=== PATIENT | male | born 1950 | race Caucasian/White ===

== ENCOUNTER 2017-02-27 02:38 | Inpatient (IN) ==
--- NOTE | 2017-02-24 11:45 | EKG Report ---
Test Performed on : 02/24/2017 11:36:39 AM Test Reason : PAT Blood Pressure : / mmHG Vent. Rate : 081 BPM Atrial Rate : 081 BPM P-R Int : 148 ms QRS Dur : 092 ms QT Int : 404 ms P-R-T Axes : 050 023 033 degrees QTc Int : 469 ms Normal sinus rhythm. Nonspecific ST and T wave abnormality Prolonged QT Abnormal ECG When compared with ECG of 07-MAY-2015 05:14, T wave inversion no longer evident in Anterior leads Confirmed by Henrik CORCORAN, Christiano Fishman ([id number]) on 02/24/2017 4:36:04 PM
[2017-02-24 11:52] LABS: HEMATOCRIT 46.2 % (42.0-52.0); HEMOGLOBIN 15.5 g/dL (14.0-18.0); MCH 29.6 PG (27-31); MCHC 33.5 g/dL (33-37); MCV 88.3 FL (81-99); MPV 10.5 FL (7.4-10.4); RBC 5.23 XMIL (4.7-6.1)
[2017-02-24 12:25] LABS: CALCIUM 9.2 mg/dL (8.8-10.2)
[2017-02-27] MEDS ORDERED: NITROGLYCERIN 50 MG/D5W 250 ML ONE (06:38)
[2017-02-27] MEDS ORDERED: LR 1,000 ML ONE ×2 (06:49→13:46)
[2017-02-27] MEDS ORDERED: KEFZOL 1 GM/D5W 50 ML ONE (06:50)
[2017-02-27] MEDS ORDERED: LOPRESSOR ONE (08:08)
[2017-02-27] MEDS ORDERED: VERSED ONE (10:17)
[2017-02-27] MEDS ORDERED: HEPARIN ONE ×2 (10:36→13:42)
[2017-02-27] MEDS ORDERED: KEFZOL ONE (10:36)
[2017-02-27] MEDS ORDERED: MARCAINE 0.25% PF/EPI 1:200,000 ONE (10:37)
[2017-02-27] MEDS ORDERED: NS 1,000 ML ONE ×2 (10:37→13:38)
[2017-02-27] MEDS ORDERED: NS 500 ML ONE (10:51)
[2017-02-27] MEDS ORDERED: PROTAMINE SULFATE ONE (12:26)
[2017-02-27] MEDS ORDERED: DIPRIVAN 1% ONE (13:07)
[2017-02-27] MEDS ORDERED: FENTANYL ONE (13:07)
[2017-02-27] MEDS ORDERED: PIGGYBACK SET 7393 ONE (13:40)
[2017-02-27] MEDS ORDERED: NORCURON ONE (13:40)
[2017-02-27] MEDS ORDERED: ATROPINE ONE (13:40)
[2017-02-27] MEDS ORDERED: QUELICIN (DOSE) ONE (13:40)
[2017-02-27] MEDS ORDERED: NEO-SYNEPHRINE ONE (13:42)
[2017-02-27] MEDS ORDERED: NEOSTIGMINE ONE (13:42)
[2017-02-27] MEDS ORDERED: STERILE WATER INJ. ONE (13:42)
[2017-02-27] MEDS ORDERED: ZOFRAN ONE (13:42)
[2017-02-27] MEDS ORDERED: XYLOCAINE-MPF 2% ONE (13:43)
[2017-02-27] MEDS ORDERED: ROBINUL ONE (13:43)
[2017-02-27] MEDS ORDERED: EPHEDRINE ONE (13:43)
[2017-02-27] MEDS: NS 1,000 ML IV SCH (14:18)
[2017-02-27] MEDS: ZOFRAN IV PRN (14:18)
[2017-02-27] MEDS: XYLOCAINE 1% ONE ×2 (14:20)
[2017-02-27] MEDS: OFIRMEV 1000 MG/ISOTONIC SOLN 100 ML IV SCH ×2 (14:21→19:54)
--- NOTE | 2017-02-27 14:33 | OPERATIVE NOTE ---
PROCEDURE DATE: 02/27/2017 PROCEDURE: Right carotid endarterectomy with patch angioplasty. SURGEON: Ronnell Galeano MD. CASE MONITOR: Puneet Verdin MD. PREOPERATIVE DIAGNOSIS: High-grade bilateral carotid stenosis. POSTOPERATIVE DIAGNOSIS: High-grade bilateral carotid stenosis. DESCRIPTION OF PROCEDURE: Satisfactory general endotracheal anesthesia achieved , the right side of the neck was prepped and draped in a sterile fashion. We marked the skin obliquely and anesthetized the skin with 0.25 Marcaine with epinephrine. We incised the skin , and carried our incision through the platysma. We then dissected along the anterior border of the sternocleidomastoid muscle. Small crossing veins were divided after clamping them with hemostats. We then ligated with 3-0 silks. We exposed the common carotid, surrounded with an umbilical tape. We dissected out the external carotid and surrounded it with a large vessel loop. We identified the hypoglossal nerve. We followed the ansa up to it and we kept it out of harm's way. The plaque seemed to go rather high. We surrounded the internal with a small vessel loop. 7000 units of heparin were given systemically. Then after it had circulated for 5 minutes , we clamped and occluded flow in the branch vessels with the vessel loops and then clamped off the common with a DeBakey clamp. Under 2.5 loupe magnification, we then incised the common, extended the incision through the plaque which was extreme at the takeoff of the internal into the internal. We then placed a 4-3 mm Sundt shunt. Held the distal limb of the small ring clamp. The proximal end was held with the umbilical tape. Clamp time was approximately 2 minutes. We then used a Thorpe to raise the plaque out of the common and we transected it proximally with the Guadarrama scissors. We then used a Thorpe to dissect it out of the external and the branch was right by the external it back bled to. After doing an eversion endarterectomy on that, we then dissected out the plaque from the internal and had a satisfactory taper point in the internal. We irrigated the endarterectomized vessel, removed all leaflets we could identify. We then obtained a 1 x 6 bovine patch. After it had soaked satisfactory. We then sutured it with a 6-0 Prolene running stitch as a patch angioplasty. As we neared completion, we back bled the external, removed the shunt from the internal and clamped off the internal again with a profunda clamp and then removed the shunt from the common, flushing it. We then clamped off the common as well. We then finished the patch angioplasty. We held the internal occluded, opened the external and the common , and then after 5 seconds opened the internal. A couple of extra stitches were used to achieve complete hemostasis of the patch angioplasty. We then irrigated out with Kefzol-impregnated saline. We placed a Jose drain within the wound. We secured it at the skin level with a 2-0 silk. We closed the platysma with running 3-0 Polysorb, once again injected 0.25 Marcaine with epinephrine and closed the skin with a 4-0 Polysorb subcuticular stitch. Telfa and sterile OpSite was applied. He tolerated it well. Was sent to the recovery room in satisfactory condition. He was awake at the time of this dictation. MTDD
[2017-02-27] MEDS: HUMALOG SUBQ SCH (16:24)
[2017-02-27] MEDS ORDERED: PATIENT'S OWN MED PO SCH (21:00)
[2017-02-27] MEDS ORDERED: LIVALO PO SCH (21:00)
[2017-02-27] MEDS: FLOMAX PO SCH (21:08)
[2017-02-27] MEDS: LOPRESSOR PO SCH (21:08)
[2017-02-27] MEDS ORDERED: INSULIN PEN NEEDLES ONE (21:12)
[2017-02-27] MEDS: LANTUS SUBQ SCH (21:13)
[2017-02-27] MEDS: ULTRAM PO PRN (23:32)
[2017-02-28] MEDS: ZOFRAN IV PRN ×2 (00:48→14:32)
[2017-02-28] MEDS: NS 1,000 ML IV SCH ×3 (02:35→19:28)
[2017-02-28] MEDS: OFIRMEV 1000 MG/ISOTONIC SOLN 100 ML IV SCH ×4 (02:35→19:25)
[2017-02-28] MEDS: HUMALOG SUBQ SCH ×3 (06:14→16:34)
[2017-02-28 06:31] LABS: HEMOGLOBIN 13.5 g/dL (14.0-18.0); MCH 29.9 PG (27-31); MCHC 32.9 g/dL (33-37); MCV 90.7 FL (81-99); MPV 10.9 FL (7.4-10.4); RBC 4.52 XMIL (4.7-6.1)
[2017-02-28 07:01] LABS: AGAP 14; BUN 15 mg/dL (8-22); CALCIUM 8.4 mg/dL (8.8-10.2); CHLORIDE 103 mmol/L (98-107); COSMO 284; POTASSIUM 4.2 mmol/L (3.5-5.1); SODIUM 139 mmol/L (136-145); TCO2 22 mmol/L (25-35)
[2017-02-28] MEDS: LOPRESSOR PO SCH ×2 (08:04→19:25)
[2017-02-28] MEDS: FLOMAX PO SCH ×3 (08:04→21:04)
[2017-02-28] MEDS ORDERED: ASPIRIN PO SCH (09:00)
[2017-02-28] MEDS ORDERED: ASPIRIN EC PO SCH (09:00)
[2017-02-28] MEDS ORDERED: LASIX PO SCH (09:00)
[2017-02-28] MEDS ORDERED: PAXIL PO SCH (09:00)
[2017-02-28] MEDS ORDERED: PRINIVIL PO SCH (09:00)
[2017-02-28] MEDS ORDERED: KLOR-CON PO SCH (09:00)
[2017-02-28] MEDS ORDERED: PROTONIX PO SCH (09:00)
[2017-02-28] MEDS ORDERED: PLAVIX PO SCH (09:00)
[2017-02-28] MEDS: ULTRAM PO PRN (15:42)
[2017-02-28] MEDS: LANTUS SUBQ SCH (21:02)
[2017-02-28 22:32] VITALS: BP 135/56
[2017-03-01] MEDS: ULTRAM PO PRN (03:20)
[2017-03-01] MEDS: ZOFRAN IV PRN (04:01)
[2017-03-01] MEDS: HUMALOG SUBQ SCH (06:19)
--- NOTE | 2017-03-01 10:06 | PROGRESS NOTE ---
DATE: 03/01/2017 SUBJECTIVE: Patient doing well. No major issues. OBJECTIVE: Vital Signs: Patient is currently afebrile. His vital signs have been stable. General: No acute distress. Neurologic: Exam is intact grossly. Neck: Some mild swelling in the carotid site but otherwise no major signs of bleeding. Cardiovascular: Regular rate and rhythm. Lungs: Grossly clear. ASSESSMENT AND PLAN: A 66-year-old male, now postop day #2 from carotid endarterectomy on the right side. Postop day #2: At this time, patient is doing well. No major issues. We will discharge patient home. cc: MD Ronnell Ozuna MD MTDD
== END 2017-03-01 08:44 | disposition home or self-care (01) ==
LOC: SURHOLD 02:38 → ICU 12:54 → 4N 02-28 08:46 → DIRADM 02-28 09:54 → 4N 02-28 09:58 → DIRADM 03-01 08:44
PROVIDERS: ADMIT Surgery; ATTEND Surgery

== ENCOUNTER 2017-05-26 09:00 | Inpatient (IN) ==
[2017-05-22 12:05] LABS: HEMATOCRIT 44.7 % (42.0-52.0); HEMOGLOBIN 14.9 g/dL (14.0-18.0); MCH 29.6 PG (27-31); MCHC 33.3 g/dL (33-37); MCV 88.9 FL (81-99); RBC 5.03 XMIL (4.7-6.1)
[2017-05-22 12:06] LABS: CALCIUM 9.2 mg/dL (8.8-10.2); POTASSIUM 4.6 mmol/L (3.5-5.1)
[2017-05-29] MEDS ORDERED: PEPCID ONE (05:31)
[2017-05-29] MEDS ORDERED: REGLAN ONE (05:31)
[2017-05-29] MEDS ORDERED: KEFZOL 1 GM/D5W 1 GM/50 ML IVPB ONE (05:32)
[2017-05-29] MEDS ORDERED: LR 1,000 ML ONE ×2 (05:32→09:04)
[2017-05-29] MEDS ORDERED: VERSED ONE (06:26)
[2017-05-29] MEDS ORDERED: XYLOCAINE 1% ONE (06:37)
[2017-05-29] MEDS ORDERED: NS 1,000 ML ONE ×2 (06:37→09:04)
[2017-05-29] MEDS ORDERED: HEPARIN ONE (06:37)
[2017-05-29] MEDS ORDERED: KEFZOL ONE (06:37)
[2017-05-29] MEDS ORDERED: MARCAINE 0.25% PF/EPI 1:200,000 ONE (06:42)
[2017-05-29] MEDS ORDERED: DIPRIVAN 1% ONE (07:00)
[2017-05-29] MEDS ORDERED: QUELICIN (DOSE) ONE (07:00)
[2017-05-29] MEDS ORDERED: XYLOCAINE-MPF 2% ONE (07:01)
[2017-05-29] MEDS ORDERED: ZEMURON ONE ×2 (07:32→08:19)
[2017-05-29] MEDS ORDERED: NS 500 ML ONE (07:34)
[2017-05-29] MEDS ORDERED: EPHEDRINE ONE (07:37)
[2017-05-29] MEDS ORDERED: DILAUDID ONE (07:54)
[2017-05-29] MEDS ORDERED: ROBINUL ONE (07:55)
[2017-05-29] MEDS ORDERED: NEOSTIGMINE ONE (07:55)
[2017-05-29] MEDS ORDERED: ZOFRAN ONE (08:16)
[2017-05-29] MEDS ORDERED: DECADRON ONE (08:16)
--- NOTE | 2017-05-29 10:41 | OPERATIVE NOTE ---
PROCEDURE DATE: 05/29/2017 PROCEDURE PERFORMED: Left carotid endarterectomy with patch angioplasty. SURGEON: Ronnell Galeano MD PRODUCT CONTROL AND LOGISTICS ANALYST: XIOMARA Lopez PREOPERATIVE DIAGNOSIS: High-grade left internal carotid stenosis. POSTOP DIAGNOSIS: High-grade left internal carotid stenosis with ulceration. DESCRIPTION OF PROCEDURE: Satisfactory general endotracheal anesthesia was achieved. The head was gently extended, turned to the right, the left side of the neck was prepped and draped in a sterile fashion. We ultra-sounded the neck to determine the level of the bifurcation. We then marked the skin. We anesthetized the skin with 0.25 Marcaine with epinephrine. Transversely, we incised the skin, and carried our incision through the subcutaneous tissue through the platysma. We then dissected along the anterior border of the sternocleidomastoid muscle. Crossing veins were ligated with 3-0 silk ties and divided and then additionally clipped. We identified the common carotid artery, surrounded it with an umbilical tape, 5000 units of heparin were given. We then dissected out the branch vessels. A small vessel loop was placed around the superior thyroid artery. A large vessel loop was placed around the external carotid and the internal carotid was identified and surrounded with a small vessel loop. The hypoglossal nerve was identified. Small crossing vessels were ligated and divided and additionally clipped. This allowed further exposure of the distal internal carotid. We then clamped the vessels with the vessel loops and clamped the common carotid with a DeBakey clamp. We incised the common with an 11 blade and extended it with the Guadarrama scissors through the severe plaque stenosis and noted was also a large ulceration. We then placed a 4 to 3 mm Sundt shunt. A small ring clamp was used to secure the shunt distally and the umbilical tape as a Asiya tourniquet held the shunt proximally. The clamp time was less than 2 minutes. Under 2.5 loupe magnification, we then raised the plaque out of the common and transected it with Guadarrama scissors, used a [place] tool to dissect it out of the vessel. We did an eversion endarterectomy of the external and then dissected in the internal until we got a reasonably good taper point. We then irrigated out the endarterectomized vessel with heparinized saline removed all leaflets we could identify. We tacked the intima with two 7-0 Prolene stitches and obtained a 1 x 6 bovine patch and then did the patch angioplasty using a 6-0 Prolene. As we neared completion of the patch angioplasty, we removed the shunt from the internal, then from the common. We back-bled the internal, the external, and fore-bled common once again occluded flow in the vessels. We then finished the patch angioplasty. We held the internal occluded, we opened the external, then the common. After flushing it, we then opened the internal. Two additional stitches were required to achieve complete hemostasis of the patch angioplasty. We irrigated out the wound. Hemostasis was satisfactory. We placed a Jose drain within the wound bringing it out the skin inferior to the incision. We secured it at the skin level with 2-0 silk. We then closed the platysma with 3-0 Polysorb running. We placed 0.25 Marcaine with epinephrine. Once again, in the subcutaneous tissue and dermis for pain relief. We then closed the skin with a 4-0 Polysorb subcuticular stitch. Sterile dressing was applied. He tolerated the procedure satisfactorily, was awake at the time of this dictation. cc: Ronnell Galeano MD
[2017-05-29] MEDS ORDERED: ASPIRIN PO SCH (12:01)
[2017-05-29] MEDS ORDERED: NS 1,000 ML IV ONE (12:01)
[2017-05-29] MEDS ORDERED: ULTRAM PO PRN (12:01)
[2017-05-29] MEDS ORDERED: ZOFRAN IV PRN (12:01)
[2017-05-29] MEDS: PAXIL PO SCH (16:05)
[2017-05-29] MEDS: KLOR-CON PO SCH (16:06)
[2017-05-29] MEDS: LASIX PO SCH (16:06)
[2017-05-29] MEDS: ASPIRIN EC PO SCH (16:06)
[2017-05-29] MEDS: PRINIVIL PO SCH (16:06)
[2017-05-29] MEDS: PROTONIX PO SCH (16:06)
[2017-05-29] MEDS: OFIRMEV 1000 MG/ISOTONIC SOLN 1,000 MG/100 ML BOTTLE IV SCH ×2 (16:07→22:25)
[2017-05-29] MEDS: FLOMAX PO SCH ×2 (17:26→22:25)
[2017-05-29] MEDS: LOPRESSOR PO SCH ×2 (17:26→22:26)
[2017-05-29] MEDS ORDERED: LANTUS SUBQ SCH (21:00)
[2017-05-29] MEDS ORDERED: LIVALO PO SCH (21:00)
[2017-05-29] MEDS: PERIDEX MT SCH (22:25)
[2017-05-30] MEDS: OFIRMEV 1000 MG/ISOTONIC SOLN 1,000 MG/100 ML BOTTLE IV SCH ×2 (03:45→09:27)
[2017-05-30] MEDS: KLOR-CON PO SCH (08:22)
[2017-05-30] MEDS: PROTONIX PO SCH (08:22)
[2017-05-30] MEDS: FLOMAX PO SCH (08:22)
[2017-05-30] MEDS: ASPIRIN EC PO SCH (08:22)
[2017-05-30] MEDS: PERIDEX MT SCH (08:22)
[2017-05-30] MEDS: PAXIL PO SCH (08:22)
[2017-05-30] MEDS: PRINIVIL PO SCH (08:22)
[2017-05-30] MEDS: LOPRESSOR PO SCH (08:22)
[2017-05-30] MEDS: LASIX PO SCH (08:22)
[2017-05-30 10:57] VITALS: BP 120/49
== END 2017-05-30 13:30 | disposition home or self-care (01) ==
LOC: SURHOLD 05-29 05:13 → 4N 05-29 11:46
PROVIDERS: ADMIT Surgery; ATTEND Surgery

== ENCOUNTER 2019-08-03 09:45 | Observation (INO) ==
--- NOTE | 2019-08-03 12:52 | EKG Report ---
Test Performed on : 08/03/2019 12:04:59 PM Test Reason : + Stress Test 07/28/19 Blood Pressure : / mmHG Vent. Rate : 059 BPM Atrial Rate : 059 BPM P-R Int : 158 ms QRS Dur : 102 ms QT Int : 440 ms P-R-T Axes : 046 016 170 degrees QTc Int : 435 ms Sinus bradycardia. Minimal voltage criteria for LVH, may be normal variant Nonspecific T wave abnormality (diffuse flattening) Abnormal ECG When compared with ECG of 07-OCT-2017 02:46, No significant change was found Confirmed by Zackery CORCORAN, Michael Hawkins ([id number]) on 08/04/2019 8:28:23 AM
[2019-08-03 13:57] LABS: BASO# 0.04 X1000 (0.0-0.2); BASO% 0.5 % (0.0-0.8); EOS# 0.19 X1000 (0.0-0.7); EOS% 2.6 % (0.0-10.0); HEMATOCRIT 44.6 % (42.0-52.0); HEMOGLOBIN 15.1 g/dL (14.0-18.0); LYMPH# 1.44 X1000 (1.2-3.4); LYMPH% 19.6 % (20.5-51.1); MCH 29.9 PG (27-31); MCHC 33.9 g/dL (33-37); MCV 88.3 FL (81-99); MONO# 0.62 X1000 (0.11-0.59); MONO% 8.4 % (1.7-9.3); MPV 10.7 FL (7.4-10.4); NEUT# 5.06 X1000 (1.4-6.5); NEUT% 68.9 % (42.2-75.2); PLT 209 X1000 (130-400); RBC 5.05 XMIL (4.7-6.1); RDW 14.4 % (11.5-14.5); WBC 7.35 X1000 (4.8-10.8)
[2019-08-03 14:30] LABS: ALB/GLOB RATIO 1.8; ALBUMIN 4.4 g/dL (3.5-5.0); CALCIUM 9.2 mg/dL (8.8-10.2); CREATININE 1.3 mg/dL (0.7-1.2); POTASSIUM 4.5 mmol/L (3.5-5.1); TOTAL BILIRUBIN 0.26 mg/dL (0.20-1.00); TOTAL PROTEIN 6.9 g/dL (6.3-8.3)
[2019-08-03 14:52] LABS: CK INDEX 3.4 (0.0-2.5); CK-MB 7.69 ng/mL (0.0-5.0)
[2019-08-03] MEDS ORDERED: ULTRAM PO PRN (15:47)
--- NOTE | 2019-08-03 18:31 | CONSULTATION ---
DATE OF CONSULTATION: 08/03/2019 CARDIOLOGY CONSULTATION NOTE: IMPRESSION: 1. Exertional shortness of breath, possible anginal equivalent. Consider also possible congestive heart failure. 2. Atherosclerotic coronary disease. 3. Status post previous coronary angioplasty/stent procedures. 4. Status post coronary bypass grafting in 2014. 5. Murmur consistent with aortic stenosis. 6. Atherosclerotic carotid disease. The patient is status post bilateral carotid endarterectomies. 7. Peripheral vascular disease. The patient is status post endovascular repair. 8. Obesity. 9. Hypertension. 10. Type 2 diabetes mellitus. 11. Hyperlipidemia. 12. Obstructive sleep apnea. 13. Status post cerebrovascular accident with minimal residual. RECOMMENDATIONS: 1. Echocardiography. 2. Recent stress myocardial perfusion study abnormal. 3. We will plan for cardiac catheterization and selective coronary geography to further evaluate the patient's coronary disease and abnormal stress myocardial perfusion study. It will be helpful to know results of echocardiography prior to procedure. The rationale for invasive evaluation and the potential hazards were discussed with the patient and he wished to proceed. HISTORY: This 69-year-old white male with past history of atherosclerotic coronary disease, previous coronary bypass grafting in 2014, atherosclerotic carotid disease, hypertension, type 2 diabetes mellitus, obesity, hyperlipidemia, and obstructive sleep apnea was admitted for further evaluation of exertional shortness of breath and recent abnormal stress myocardial perfusion study. He relates a 6 to 8 month history of exertional shortness of breath. Occasionally there has been some orthopnea. There has been no chest pain. He recently had stress myocardial perfusion study which was abnormal. He was subsequently admitted for further workup. He describes exertional shortness of breath with very little activity. PAST MEDICAL HISTORY: 1. Atherosclerotic coronary disease as outlined above. 2. Atherosclerotic carotid disease. 3. Type 2 diabetes mellitus. 4. Hypertension. 5. Hyperlipidemia. 6. Obesity. 7. Obstructive sleep apnea. 8. Congestive heart failure with preserved left ventricular ejection fraction. 9. Mild aortic stenosis in the past by echocardiography 2 years ago. PAST SURGICAL HISTORY: Includes bilateral carotid endarterectomies, coronary bypass surgery in 2014, and bilateral knee surgery. ALLERGIES: He has no known drug allergies. MEDICATIONS PRIOR TO ADMISSION: As listed. SOCIAL HISTORY: He is . He is retired from previous work with [employer]. He quit smoking more than 20 years ago. He has history of heavy alcohol use, also discontinued more than 20 years ago. He served in the [employer] in [place]. He is originally from the [place] area. FAMILY HISTORY: Positive for coronary disease. REVIEW OF SYSTEMS: Pulmonary: Noteworthy for exertional shortness of breath and some orthopnea. Gastrointestinal: Noncontributory. Constitutional: Noncontributory. Remainder of review of systems noncontributory with 14 total systems reviewed. PHYSICAL EXAMINATION: general: Reveals an obese, older, white male in no distress. Vital signs: Blood pressure 118/89. Heart rate 62 and regular. Weight 325 pounds. Oxygen saturation 95% on room air. HEENT: Extraocular muscles appear intact. Mucous membranes are moist. Neck: Supple without jugular venous distention. There are no carotid bruits. Chest: Clear to auscultation bilaterally. Cardiac: Reveals a regular rate and rhythm with a grade 2 to 3/6 crescendo/decrescendo systolic murmur at the right upper sternal border and left sternal border. No gallop could be appreciated. Abdomen: Soft. Bowel sounds are normal. Extremities: Demonstrate chronic stasis changes. There is trace bilateral edema. Neurologic: Neurologic exam reveals him to be alert and fully oriented. Speech is fluent. He moves all 4 extremities equally well. Skin: Warm and dry. Psychiatric: Reveals mood to be appropriate. PERTINENT DATA: Twelve-lead EKG obtained today demonstrates sinus rhythm at 59 beats per minute, minimal voltage criteria for left ventricular hypertrophy, and nonspecific T-wave abnormality. Laboratory data includes a white blood cell count of 7.35 hematocrit 44.6, hemoglobin 15.1, platelet count 209,000. Sodium 139, potassium 4.5, chloride 102, carbon dioxide 25, BUN 25, creatinine 1.3, glucose 167. CPK 223, CPK-MB 7.69, CPK=MB index 3.4. Troponin-T 0.013. Pro B- natriuretic peptide level 732. Chest x-ray is pending. cc: MD Jose Armando Puente MD
--- NOTE | 2019-08-03 19:09 | HISTORY AND PHYSICAL ---
CHIEF COMPLAINT: Exertional shortness of breath for the last 1 month. HISTORY OF PRESENT ILLNESS: This is a 69-year-old white male with a known history of existing heart disease, myelitis, stenosis, bypass surgery 2 years ago, who came in with exertional shortness of breath. Abnormal stress test as an outpatient [facility] and Dr. Warner reported cannot rule out reversible ischemia. EF is 38%. Basically admitted to the hospital for left heart catheterization. PAST MEDICAL HISTORY: 1. Mild aortic stenosis. 2. BPH. 3. CAD. 4. Depression. 5. Type 2 diabetes. 6. Metabolic syndrome. 7. Reflux disease. 8. Hyperlipidemia. 9. Hypothyroidism. 10. Nonalcoholic steatohepatitis. 11. Sleep apnea. 12. Umbilical hernia. PAST SURGICAL HISTORY: 1. Bypass surgery in 2016. 2. Bilateral carotid endarterectomy. MEDICATIONS: 1. Aspirin. 2. Potassium. 3. Fenofibrate 160 mg daily. 4. Metoprolol 25 daily. 5. Synthroid 50 mcg daily. 6. Paxil 40 mg daily. 7. Protonix 40 mg daily. 8. Amlodipine 5 mg daily. 9. Plavix 75 mg daily. 10. Lantus and Humalog as directed. ALLERGIES: Not known. SOCIAL HISTORY: He is since 1969. Retired from [employer]. No drug abuse. History of smoking in the past. No alcohol. FAMILY HISTORY: Father at the age of 40 from aneurysm. Mom of multiple myeloma. REVIEW OF SYSTEMS: HEENT: No headache. No vision problem. No earache. No sore throat. Neck: No goiter. No lymphadenopathy. No bruit. Cardiopulmonary: Exertional shortness of breath. No PND. No orthopnea or swelling of feet. GI: No nausea, vomiting, abdominal pain. : No history of hesitancy, frequency, dysuria. No back pain. Neurologic: No focal symptoms or weakness. PHYSICAL EXAMINATION: VITAL SIGNS: Temperature is 97 degrees, pulse is 62, blood pressure is stable. Weight is 325 pounds. HEENT: Atraumatic, normocephalic. Pupils equal, reacting to light. NECK: Supple. CHEST: Bilateral air entry. HEART: Sounds are regular with a 2/6 systolic murmur in the aortic area. ABDOMEN: Belly is soft, obese, nontender. EXTREMITIES: There is 1+ edema. NEUROLOGIC: No obvious neurological deficits. INVESTIGATIONS: CBC is normal. CK-MB index positive. CMP: Creatinine 1.3 is normal. ProBNP is 732. Troponin was negative. Lipid profile in my office on 07/15/2019: Cholesterol 255, LDL 186. Hemoglobin A1c 7.2. EKG: Normal sinus, bradycardia, Q-waves in the inferior leads, nothing acute. ASSESSMENT AND PLAN: A 69-year-old white gentleman with: 1. Known history of ischemic cardiomyopathy, status post bypass, peripheral artery disease, aortic stenosis, came in with exertional shortness of breath, positive abnormal scan, ejection fraction 38%, reversible defects in inferior wall. Plan is left heart catheterization, evaluation of aortic valve disease as well. 2. LDL is still high. Continue on Livalo 4 mg daily. We will start on Trilipix. 3. Peripheral artery disease. Aspirin and Plavix. 4. Hypothyroidism. Synthroid. 5. Coronary artery disease, on beta blockers and aspirin. 6. Continue on deep venous thrombosis and gastrointestinal prophylaxis with Lovenox and Protonix. 7. Consult with Dr. Ki Robbins for left heart catheterization and followup. cc: Jose Armando London MD
--- NOTE | 2019-08-03 19:23 | Diag Imaging Result Doc PS360 ---
CHEST-2 VIEWS - 08/03/2019 INDICATION: dyspnea COMPARISON: 10/07/2017 FINDINGS: Stable sternotomy wires. Stable increased markings in the left lung base is likely pulmonary fibrosis. No new infiltrates. Heart size remains top normal. No pneumothorax or pleural effusion. IMPRESSION: Probable pulmonary fibrosis. Mild cardiomegaly. No change from prior. Electronically signed by Jaspreet Hensley 08/03/2019 7:21 PM
[2019-08-03] MEDS: LOPRESSOR PO SCH (20:47)
[2019-08-03] MEDS: FLOMAX PO SCH (20:47)
[2019-08-03] MEDS: LIVALO PO SCH (20:47)
[2019-08-03 22:02] LABS: CK INDEX 3.3 (0.0-2.5); CK-MB 6.89 ng/mL (0.0-5.0)
[2019-08-04] MEDS: SYNTHROID PO SCH (06:01)
--- NOTE | 2019-08-04 06:46 | EKG Report ---
Test Performed on : 08/04/2019 06:15:41 AM Test Reason : Positive Stress Test Blood Pressure : / mmHG Vent. Rate : 062 BPM Atrial Rate : 062 BPM P-R Int : 160 ms QRS Dur : 098 ms QT Int : 420 ms P-R-T Axes : 059 024 176 degrees QTc Int : 426 ms Normal sinus rhythm. ST & T wave abnormality, consider inferolateral ischemia Abnormal ECG When compared with ECG of 03-AUG-2019 12:04, (Unconfirmed) No significant change was found Confirmed by Zackery CORCORAN, Michael Hawkins ([id number]) on 08/04/2019 5:17:04 PM
[2019-08-04 07:09] LABS: INR 1.07; PROTIME 14.1 Seconds (11.0-16.0)
[2019-08-04 07:32] LABS: CREATININE 1.4 mg/dL (0.7-1.2); MAGNESIUM 1.9 mg/dL (1.5-2.7); POTASSIUM 4.7 mmol/L (3.5-5.1)
[2019-08-04] MEDS: PAXIL PO SCH (09:35)
[2019-08-04] MEDS: KLOR-CON PO SCH (09:35)
[2019-08-04] MEDS: PLAVIX PO SCH (09:35)
[2019-08-04] MEDS: ASPIRIN EC PO SCH (09:35)
[2019-08-04] MEDS: LOPRESSOR PO SCH ×2 (09:36→22:10)
[2019-08-04] MEDS: PRINIVIL PO SCH (09:36)
[2019-08-04] MEDS: PROTONIX PO SCH (09:36)
[2019-08-04] MEDS: FLOMAX PO SCH ×2 (09:36→22:10)
[2019-08-04] MEDS ORDERED: CLAVE TWINSITE 32 IN 11959 ONE (10:06)
[2019-08-04] MEDS ORDERED: VERSED ONE (10:06)
[2019-08-04] MEDS ORDERED: MORPHINE ONE (10:06)
[2019-08-04] MEDS ORDERED: CLAVE PUMP SET NO FILTER 12260 ONE (10:06)
[2019-08-04] MEDS ORDERED: NS 1,000 ML ONE (10:06)
[2019-08-04] MEDS ORDERED: NS 100 ML ONE (10:16)
[2019-08-04] MEDS ORDERED: XYLOCAINE 1% ONE (10:18)
[2019-08-04] MEDS ORDERED: HEPARIN 1000 UNITS/NS 2,000 UNIT/1,000 ML IV.SOLN ONE (10:18)
--- NOTE | 2019-08-04 13:09 | EKG Report ---
Test Performed on : 08/04/2019 12:58:37 PM Test Reason : s/p heart cath Blood Pressure : / mmHG Vent. Rate : 054 BPM Atrial Rate : 054 BPM P-R Int : 162 ms QRS Dur : 092 ms QT Int : 436 ms P-R-T Axes : 060 036 060 degrees QTc Int : [address] & T wave abnormality, consider inferior ischemia Abnormal ECG When compared with ECG of 04-AUG-2019 06:15, (Unconfirmed) Nonspecific T wave abnormality, worse in Anterior leads Confirmed by Zackery CORCORAN, Michael Hawkins ([id number]) on 08/04/2019 5:26:37 PM
[2019-08-04] MEDS ORDERED: NS 1,000 ML IV SCH (14:00)
[2019-08-04] MEDS: LASIX PO SCH (18:25)
[2019-08-04] MEDS: LIVALO PO SCH (22:09)
--- NOTE | 2019-08-04 22:57 | PROGRESS NOTE ---
DATE: 08/04/2019 SUBJECTIVE: The patient is doing very well. Basically admitted for abnormal nuclear medicine and exertional shortness of breath. REVIEW OF SYSTEMS: None reported. OBJECTIVE: Temperature is 97 degrees, pulse 59. Vitals are stable on CPAP machine last night. Morbidly obese.Chest: Clear. Heart sounds are regular with a 2/6 systolic murmur. Belly is soft, nontender. No obvious deficits noted. INVESTIGATIONS: Creatinine 1.4, glucose 210. Cardiac enzymes, troponin is coming down. ASSESSMENT AND PLAN: 1. Coronary artery disease, status post bypass surgery in 2014. Waiting for catheterization. 2. Aortic stenosis. Follow up on aortic valve area and continue present treatment. I spoke to Dr. Robbins. He is going to do a catheterization as well as evaluation of the aortic stenosis, and based on that, further recommendations will be followed. LEVEL OF DOCUMENTATION: 25 minutes. cc: Jose Armando London MD MTDD
[2019-08-05] MEDS: SYNTHROID PO SCH ×2 (05:29→06:12)
[2019-08-05 07:46] VITALS: BP 109/63
[2019-08-05 07:53] LABS: ALB/GLOB RATIO 1.4; ALBUMIN 3.8 g/dL (3.5-5.0); CALCIUM 8.6 mg/dL (8.8-10.2); CREATININE 1.3 mg/dL (0.7-1.2); MAGNESIUM 1.9 mg/dL (1.5-2.7); POTASSIUM 5.3 mmol/L (3.5-5.1); TOTAL BILIRUBIN 0.36 mg/dL (0.20-1.00); TOTAL PROTEIN 6.5 g/dL (6.3-8.3)
[2019-08-05] MEDS: ASPIRIN EC PO SCH (08:40)
[2019-08-05] MEDS: FLOMAX PO SCH (08:40)
[2019-08-05] MEDS: PAXIL PO SCH (08:40)
[2019-08-05] MEDS: PROTONIX PO SCH (08:40)
[2019-08-05] MEDS: PLAVIX PO SCH (08:40)
[2019-08-05] MEDS: PRINIVIL PO SCH (08:40)
[2019-08-05] MEDS: KLOR-CON PO SCH (08:40)
[2019-08-05] MEDS: LOPRESSOR PO SCH (08:40)
[2019-08-05] MEDS: LASIX PO SCH (08:40)
--- NOTE | 2019-08-06 00:47 | ECHO REPORT ---
ORDER DATE: 08/03/2019 MEASUREMENTS: Septal thickness 1.5, left ventricular internal diameter in diastole 5.4, posterior wall thickness 1.5. Aortic root 3.4, left atrium 5.7. SUMMARY: 1. Technically difficult study due to limited acoustic window quality. Intravenous echo contrast agent, Optison, was utilized to enhance endocardial definition. 2. Fibrocalcific changes of aortic valve demonstrated with reduced aortic valve leaflet mobility. Peak gradient across the aortic valve is 77 mmHg with a mean gradient of 48 mmHg. Calculated aortic valve area by Doppler is 0.7 cm2. Severe aortic stenosis is suggested. There is very mild aortic regurgitation. Mild mitral annular calcification is demonstrated. Tricuspid valve was without evidence of structural abnormality while pulmonic valve is not well demonstrated. There is mild tricuspid regurgitation. Aortic root is normal size. 3. Normal left ventricular chamber size with moderate concentric left hypertrophy is demonstrated. Estimated left ventricular ejection fraction approximately 45% in the setting of mild global hypokinesis. Left atrium is moderately enlarged. Right atrium, right ventricle are normal in size with grossly preserved right ventricular systolic function. 4. No pericardial effusion. 5. Inferior vena cava not well demonstrated. cc: MD Jose Armando Puente MD
--- NOTE | 2019-08-10 08:53 | DISCHARGE SUMMARY ---
ADMISSION DATE: 08/03/2019 DISCHARGE DATE: 08/05/2019 DISCHARGING DIAGNOSIS: Exertional shortness of breath due to underlying ischemic cardiomyopathy, moderate aortic stenosis. SECONDARY DIAGNOSES: 1. Benign prostatic hypertrophy. 2. Depression. 3. Type 2 diabetes. 4. Metabolic syndrome. 5. Acid reflux disease. 6. Hyperlipidemia. 7. Hypothyroidism. 8. Sleep apnea on CPAP machine. 9. Nonalcoholic steatohepatitis. 10. Umbilical hernia. CONSULTS: Dr. Ki Robbins. PROCEDURE: 1. Left heart catheterization reported. All the 3 grafts were normal except 1 graft that is occluded, circumflex disease. EF is around 40%. Moderate aortic stenosis based on the continuity equation about 0.9 to 1.2 cm2. 2. Echocardiography. Findings are estimated aortic valve area 0.7 cm2. EF about 45%. BRIEF HISTORY: Please see the H and P that was done on 08/03/2019. In brief he is a 69-year-old white male with history of bypass surgery in 2015 with mild aortic stenosis by echo, came in with exertional shortness of breath for the last few days. Outpatient stress test showed reversible ischemia in the anterior inferior wall with EF 38%. HOSPITAL COURSE: Patient had a cardiac catheterization that was done to quantify the aortic stenosis as well as coronary artery circulation. Dr. Robbins reported the patient's EF is down around 40% along with mild to moderate aortic stenosis about 0.7 cm2. Results discussed with the patient. The patient is going to follow up as an outpatient for thyroid evaluation. Continue medical management. LABS: White cell count 7.3, hematocrit 44, platelets 209,000. Sodium 137, potassium 5.3, BUN 25, creatinine 1.3, glucose 194. CK was positive negative troponin. LFTs were normal. DISCHARGE INSTRUCTIONS: 1. Continue CPAP machine. 2. Flomax 0.4 p.o. b.i.d. 3. Paxil 40 mg daily. 4. Metoprolol 25 p.o. b.i.d. 5. Potassium 20 mEq daily. 6. Detrol 4 mg at bedtime. 7. Protonix 40 mg daily. 8. Lasix 20 mg daily. 9. Lisinopril 20 daily. 10. Plavix 75 daily. 11. Aspirin 81 mg daily. 12. Fenofibrate 160 daily. 13. Synthroid 50 mcg daily. 14. Tramadol as needed for pain. 15. Lantus 85 units subcutaneous in the morning, along with a sliding scale with insulin coverage. Follow up in my office next week. We will make the arrangements with outpatient for TAVR evaluation. evaluation. cc: MD Ki Clancy MD MTDD
--- NOTE | 2019-08-18 05:52 | CARDIAC CATH REPORT ---
PROCEDURE NAME: - PROCEDURE PERFORMED: Right and left heart catheterization with selective coronary angiography, left ventriculography, and ascending aortography. INDICATIONS: Recurrent chest symptoms suspicious for cardiac dyspnea in patient with history of previous coronary bypass grafting and with aortic stenosis. ENTRY SITE: Right femoral vein and right femoral artery. CATHETERS USED: Seven-Togolese thermodilution, 5-Togolese JL4, 5-Togolese JL4, 5- Togolese LORRAINE, and a 5- Togolese angled pigtail. TECHNIQUE: After intravenous sedation with morphine and Versed, local anesthesia with lidocaine was applied over right femoral vein and right femoral artery. Venous access was established with placement of a 7-Togolese sheath and right femoral vein using modified Seldinger technique. Arterial access was established with placement of a 5-Togolese sheath in the right femoral artery using modified Seldinger technique. Right heart catheterization was performed. Following this, left heart catheterization was performed. Thereafter, left ventriculography and coronary angiography with graft angiography was performed. Ascending aortography was performed to aid in determining patency of bypass grafts. Upon completion of procedure, arterial and venous sheaths were removed from right femoral artery and right femoral vein respectively. Hemostasis facilitated with manual pressure. Patient tolerated the procedure without apparent complications. FINDINGS: Hemodynamics: Right atrial pressure mean of 12, right ventricular pressure 58 over EDP of 12. Pulmonary pressure 55/25 with a mean of 35. Pulmonary capillary wedge pressure mean of 10. V wave of 14. Cardiac output 4.48 L/minute with a cardiac index 1.7 L/minute per m squared. Iván cardiac output 6.08 L/minute. Aortic pressure 136/58 with a mean of 84, left ventricular pressure 185 over EDP of 27. Calculated aortic valve area 0.98 cm2. Comments on Hemodynamics: Elevated ventricular filling pressure is demonstrated. Severe aortic stenosis suggested. ANGIOGRAPHY: 1. Left ventriculogram: The left ventricle is normal size with estimated left ejection fraction of 40 to 45% in setting of mild global hypokinesis. There is no significant mitral regurgitation. 2. Left main coronary: Left main coronary is free of significant coronary stenosis. 3. Left anterior descending coronary: The left anterior descending coronary demonstrates severe diffuse atherosclerosis proximally and is occluded after the proximal third of the vessel. First diagonal branch is occluded. The very proximal left anterior descending coronary demonstrates a 90% stenosis. 4. Left circumflex: The left circumflex coronary demonstrates moderate to severe diffuse coronary atherosclerosis. There is a 70% stenosis at the ostium of the left circumflex coronary and a short distance thereafter there is 80% stenosis. Significant diffuse atherosclerosis is evident in the left circumflex coronary artery, and its branches. 5. Right coronary: The dominant right coronary demonstrates a long segment of significant atherosclerosis from the ostium to the proximal vessel reaching approximately 80% diameter narrowing. The mid right coronary demonstrates a very severe (99%) stenosis. The distal right coronary just before the PDA demonstrates a severe (95%) focal stenosis. Diffuse coronary atherosclerosis is evident in the right coronary and its branches. 6. Left internal mammary artery graft to left anterior descending coronary. This graft is patent, and inserts into the mid left anterior descending coronary. There is significant diffuse atherosclerosis in the apical left anterior descending coronary. 7. Saphenous vein graft to diagonal. This graft is patent. There is diffuse atherosclerosis in the diagonal. 8. Saphenous vein graft to the posterior descending artery. This graft is patent. There is diffuse atherosclerosis in the posterior descending artery. 9. Saphenous vein graft to the obtuse marginal. This graft could not be selectively engaged. On left ventriculography and aortography, there is no evidence of a patent saphenous vein graft to the obtuse marginal. CONCLUSIONS: 1. Elevated ventricular filling pressures. 2. Severe aortic stenosis. 3. Estimated left ejection fraction approximately 40 to 45% in setting of mild global hypokinesis. 4. Severe diffuse multivessel coronary atherosclerosis as described. 5. Patent left internal mammary artery graft to left anterior descending coronary artery, patent saphenous vein graft to diagonal, patent saphenous vein graft to posterior descending artery, and occluded saphenous vein graft to obtuse marginal. RECOMMENDATIONS: 1. Diuresis. 2. Medical management of patient's diffuse coronary atherosclerosis with 3 of 4 patent bypass conduits. 3. Consideration to be given to possible TAVR procedure. cc: MD Jose Armando Puente MD MTDD
== END 2019-08-05 10:45 | disposition home or self-care (01) ==
LOC: DIRADM 09:45 → INTOOBSV 09:45 → 2N 09:59
PROVIDERS: ADMIT Internal Medicine; ATTEND Internal Medicine

== ENCOUNTER 2019-12-08 12:45 | Inpatient (IN) ==
--- NOTE | 2019-12-08 14:07 | Diag Imaging Result Doc PS360 ---
EXAM: CHEST-1 VIEW 12/08/2019 HISTORY: sob TECHNIQUE: AP upright at 1344 COMMENT: There is cardiomegaly and increased pulmonary vascularity. The inspiration is less optimal than on 08/03/2019. IMPRESSION: Cardiomegaly. Electronically signed by Reagan Freitas 12/08/2019 2:04 PM
--- NOTE | 2019-12-08 14:25 | PROVIDER DOCUMENTATION ---
HPI-General Adult - General Chief Complaint: SEPSIS ALERT - D Stated Complaint: SOB,HIGH BLOOD SUGAR,CHEST COLD Time Seen by Provider: 12/08/19 13:59 Source: patient Allergies/Adverse Reactions: Patient Allergies Allergy/AdvReac Type Severity Reaction Status Date / Time No Known Allergies Allergy Verified 08/03/19 10:49 Home Medications: Home Medication List Medication Instructions Recorded Confirmed Last Taken Type Paroxetine HCl 40 mg PO DAILY 03/01/14 08/03/19 08/03/19 07:00 History Tamsulosin HCl [Flomax] 0.4 mg PO BID 03/01/14 08/03/19 08/03/19 07:00 History Metoprolol [Lopressor] 25 mg PO BID 02/20/15 08/03/19 08/03/19 07:00 History Potassium Chloride 20 meq PO DAILY #0 tablet.er 02/22/15 08/03/19 08/03/19 07:00 Rx Furosemide [Lasix] 20 mg PO DAILY 07/11/15 08/03/19 08/03/19 07:00 History Pantoprazole Sodium [Protonix] 40 mg PO DAILY 07/11/15 08/03/19 08/03/19 History 0700 Pitavastatin [Livalo] 4 mg PO QHS 07/11/15 08/03/19 08/02/19 19:00 History Lisinopril 20 mg PO DAILY 07/25/15 08/03/19 08/03/19 07:00 History Clopidogrel [Plavix] 75 mg PO DAILY 02/24/17 08/03/19 08/03/19 07:00 History Aspirin [Adult Low Dose Aspirin EC] 81 mg PO DAILY 02/27/17 08/03/19 08/03/19 07:00 History Fenofibrate 160 mg PO 08/03/19 08/03/19 08/03/19 07:00 History Insulin Glargine [Lantus] 85 unit SUBQ QAM 08/03/19 08/03/19 08/03/19 07:00 History Insulin Lispro [Humalog] See Protocol 08/03/19 08/03/19 07:00 History 10 units Levothyroxine Sodium [Synthroid] 50 mcg PO DAILY 08/03/19 08/03/19 08/03/19 07:00 History Tramadol HCl 50 mg PO Q6H PRN 08/03/19 08/03/19 Unknown History - History of Present Illness -Gen Adult Nature of Presenting Problems: Patient is a 69 yowm who complains of SOB and "pain in my left lung when I cough" since yesterday. Cough is non-productive and also began yesterday. Denies any other complaints. Review of Systems - Adult - REVIEW OF SYSTEMS - ADULT Constitutional: reports: no symptoms reported. denies: fever Eyes: reports: no symptoms reported Ears, Nose, Mouth & Throat: reports: no symptoms reported Cardiovascular: reports: no symptoms reported Respiratory: reports: see HPI Gastrointestinal: reports: no symptoms reported Genitourinary: reports: no symptoms reported Musculoskeletal: reports: no symptoms reported Integumentary: reports: no symptoms reported Neurological: reports: no symptoms reported Psychiatric: reports: no symptoms reported Endocrine: reports: no symptoms reported Hematologic/Lymphatic: reports: no symptoms reported Allergic/Immunologic: reports: no symptoms reported All Other Systems: Reviewed and Negative Past History - Adult - PAST MEDICAL HISTORY-ADULT Review of Records: reports: Old Records Reviewed, Nursing Assessment Review, Medications Reviewed Major Childhood Illnesses: reports: denies history Cardiovascular: reports: CAD, CHF, HTN, hyperlipidemia Respiratory: reports: sleep apnea Gastrointestinal: reports: GERD Obstetrical/Gynecological: reports: denies history Genitourinary: reports: denies history Musculoskeletal: reports: denies history Neurological: reports: denies history Psychiatric: reports: depression Endocrine/Immune: reports: Diabetes Other Conditions: reports: denies history - PRIOR SURGERIES/PROCEDURES Surgical/Procedure History: reports: recent surgery (right carotid endarterectomy), CABG (03/2015), cardiac stent, orthopedic (extremity) (bilateral knee surgery) - PRIOR HOSPITALIZATIONS Prior Hospitalizations: reports: for similar symptoms - IMMUNIZATION STATUS Childhood Immunizations: See Nurse Assessment Flu Vaccine: See Nurse Assessment - FAMILY HISTORY Family History: reviewed, not pertinent - SOCIAL HISTORY Smoking: non-smoker Physical Exam-General - PHYSICAL EXAM-ADULT Initial Vital Signs Reviewed: Yes - CONSTITUTIONAL General Appearance: alert, mild distress. negative: lethargic, slow to respond - EYES Eyes: PERRL/EOMI, pink conjunctivae. negative: sclera injected, scleral icter us, sunken eyes - HEAD, EARS, NOSE, MOUTH & THROAT HENMT: normocephalic/atraumatic, moist mucous membranes - NECK Neck: full range of motion, supple, normal inspection - RESPIRATORY Respiratory: chest non-tender, respiratory distress (mild), crackles (at bases bilaterally), rhonchi (Diffuse). negative: stridor - CARDIOVASCULAR Cardiovascular: regular rate, rhythm, tachycardia - GASTROINTESTINAL (ABDOMEN) Abdominal Exam: normal bowel sounds, non tender, soft - MUSCULOSKELETAL Extremity: normal range of motion, non-tender, normal inspection - SKIN Integumentary: normal color, warm/dry. negative: cyanosis, diaphoresis, j aundice, mottled, pallor - NEUROLOGIC Neurologic: grossly normal, no motor/sensory deficits - PSYCHIATRIC Psych/Mental Status: normal mood/affect, normal thought content, normal thought process, oriented x 3 Progress - PLAN OF CARE/RESULTS Progress/Plan/Lab Results: Vital Signs - 8 hr 12/08/19 13:15 Temperature 98.1 F Pulse Rate 111 H Respiratory Rate 28 H Blood Pressure 129/65 O2 Sat by Pulse Oximetry 88 L Orders Category Date Time Status Cardiac Monitoring DIRECTED Care 12/08/19 13:23 Active IV Insertion ORDERED Care 12/08/19 13:23 Active Notify MD of + Sepsis Screen NOW Care 12/08/19 13:23 Active Notify Physician As Ordered Care 12/08/19 13:23 Active CHEST-1 VIEW [RAD] Stat Exams 12/08/19 13:23 Completed ABG [RESP] Routine Lab 12/08/19 14:22 Ordered BLOOD CULTURE [BLDCUL] Stat Lab 12/08/19 13:23 Uncollected CBC WITH DIFF [HEME] Stat Lab 12/08/19 13:44 Ordered CK PROFILE [SP CHEM] Stat Lab 12/08/19 13:44 Ordered COMPREHENSIVE METABOLIC PANEL [CHEM] Stat Lab 12/08/19 13:44 Ordered D-DIMER [COAG] Stat Lab 12/08/19 14:22 Uncollected LACTATE, PLASMA [CHEM] Lab 12/08/19 16:30 Uncollected LACTATE, PLASMA [CHEM] Lab 12/08/19 19:30 Uncollected LACTATE, PLASMA [CHEM] Q3H Lab 12/08/19 13:30 Ordered PRO B-NATRIURETIC PEPTIDE Stat Lab 12/08/19 14:22 Uncollected PROTIME WITH INR [COAG] Stat Lab 12/08/19 13:44 Ordered PTT [COAG] Stat Lab 12/08/19 13:44 Ordered TROPONIN T HIGH SENSITIVITY Stat Lab 12/08/19 13:44 Ordered URINALYSIS W/POSS RFLX CULT [URINALYSIS] Stat Lab 12/08/19 13:23 Uncollected Oxygen Device Stat Oth 12/08/19 13:23 Active Result Diagrams: 12/08/19 13:40 12/08/19 13:40 - REASSESSMENT Reassessment #1 Time Reassessed: 15:15 Status: other (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 Pt in agreement with admission plan.) - EKG 1 Time of EKG reading by physician:: 13:42 EKG Read and Signed by:: Yobani Pearson EKG Interpretation (*Must complete 3 of following elements*): Abnormal Rate: 112 Rhythm: sinus tachycardia with occasional PVCs, ST&T wave abnormality - XRAY 1 XRAY Study: Chest ([facility] - [address] [place] [address] [place], [place] [id number] [facility] - [address] [place] [address] Department of Imaging Patient: MARÍA GONZLAEZ Date: 12/08/19#: [id number] : 8ADM Status: PRE ERAcct#: [id number] Age/Sex: 69/MRoom/Bed: Loc: ED Ordering Physician: Joseluis Alvarado Family Physician: Thanh London MD Reason for Procedure: sob Signed EXAM: CHEST-1 VIEW 12/08/2019 HISTORY: sob TECHNIQUE: AP upright at 1344 COMMENT: There is cardiomegaly and increased pulmonary vascularity. The inspiration is less optimal than on 08/03/2019. IMPRESSION: Cardiomegaly. Electronically signed by Reagan Freitas 12/08/2019 2:04 PM 12/08/19 1404 Interpreting Physician: Reagan Freitas MD Dictated Date/Time: 12/08/19 1404 cc: Joseluis Alvarado; Thanh London MD) - CONSULTS/PCP/HOSPITALIST Notification #1 *Consult/PCP/Hospitalist*: Dr. [facility] Time Discussed: 15:25 Reason/Comments: admission-SOB,elevated troponin Consult Disposition: other (Electrical Hardware Engineer states she and Dr. Neely reviewed patient's EKG and old records and that pt should be admitted to hospital medicine at [facility].) #2 Consult: Dr. London Time Discussed: 15:35 Reason/Comments: admission-elevated troponin,SOB Consult Disposition: Admit (MD states to admit to PVC or ICU.) Departure - Departure Date of Disposition Decision: 12/08/19 Time of Disposition Decision: 15:35 DIAGNOSIS: Elevated troponin, Shortness of breath Disposition: ADMITTED INPATIENT 09 Certified Medical Emergency: Emergent Condition: Stable Referrals and Follow-Ups: Thanh London MD [Primary Care Provider] - - Critical Care Note This patient required my direct & personal management of CC.: No Attestation - Physician/ OJ Attestation Patient care was provided by Advanced Practice Provider:: Yes Advanced Practice Provider:: Gabrielle Disa Advanced Practice Provider documentation review:: The Mid-level provider documentation, treatment plan and medical decision making was reviewed by the physician who agrees with all treatment and medical decision making by the P. The physician spent face to face time with patient:: No Advanced Practice Provider documentation review:: Supervising physician onsite and consulted in the evaluation and care of this patient. The physician did not have a face to face encounter with the patient. - HEART Score HEART Score: History: Slightly Suspicious HEART Score: ECG: Non-Specific Repolarization Disturbance/LBBB/PM HEART Score: Age: > or = 65 Years HEART Score: Risk Factors for Atherosclerotic Disease: > or = 3 Risk Factors or History of Atherosclerotic Disease
[2019-12-08 14:33] LABS: BASO# 0.03 X1000 (0.0-0.2); BASO% 0.2 % (0.0-0.8); EOS# 0.46 X1000 (0.0-0.7); EOS% 3.8 % (0.0-10.0); HEMATOCRIT 45.6 % (42.0-52.0); HEMOGLOBIN 14.6 g/dL (14.0-18.0); IMM GRAN# 0.03 X1000 (0.0-0.04); IMM GRAN% 0.2 % (0.0-0.5); LYMPH# 0.68 X1000 (1.2-3.4); LYMPH% 5.6 % (20.5-51.1); MCH 28.6 PG (27-31); MCV 89.4 FL (81-99); MONO# 0.83 X1000 (0.11-0.59); MONO% 6.8 % (1.7-9.3); MPV 10.8 FL (7.4-10.4); NEUT# 10.12 X1000 (1.4-6.5); NEUT% 83.4 % (42.2-75.2); PLT 192 X1000 (130-400); RDW 14.5 % (11.5-14.5); WBC 12.15 X1000 (4.8-10.8)
[2019-12-08 14:38] LABS: INR 0.99; PROTIME 13.2 Seconds (11.0-16.0)
[2019-12-08 14:39] LABS: PTT 29.5 Seconds (22.3-41.8)
[2019-12-08 14:50] LABS: ALB/GLOB RATIO 1.7; ALBUMIN 4.4 g/dL (3.5-5.0); CREATININE 1.5 mg/dL (0.7-1.2); POTASSIUM 4.3 mmol/L (3.5-5.1); TOTAL BILIRUBIN 0.21 mg/dL (0.20-1.00)
--- NOTE | 2019-12-08 15:16 | EKG Report ---
Test Performed on : 12/08/2019 1:28:16 PM Test Reason : ED. NO EKG ORDER FOR MUSE Blood Pressure : / mmHG Vent. Rate : 112 BPM Atrial Rate : 112 BPM P-R Int : 134 ms QRS Dur : 086 ms QT Int : 330 ms P-R-T Axes : 048 038 091 degrees QTc Int : 450 ms Sinus tachycardia. with occasional premature ventricular complexes. ST & T wave abnormality, consider inferior ischemia Abnormal ECG When compared with ECG of 04-AUG-2019 12:58, premature ventricular complexes. are now present Vent. rate has increased BY 58 BPM Nonspecific T wave abnormality no longer evident in Anterior leads Unconfirmed Result
[2019-12-08 15:26] LABS: CK INDEX 2.2 (0.0-2.5); CK-MB 5.62 ng/mL (0.0-5.0)
[2019-12-08] MEDS ORDERED: ROCEPHIN 1 GM in NS 50 ML IV ONE (15:37)
[2019-12-08 15:48] LABS: ALLEN TEST YES; BE -0.4 mmoll (-3.0-3.0); BLOOD TYPE ARTERIAL; HCO3-(ACT) 24.5 mmoll (20.0-26.0); METHB 0.7 % (0.0-1.5); MODALITY CANNULA; O2(CT) 19.1 mL/dL (15.0-23.0); O2HB 93.9 % (95.0-99.0); PCO2(98.6) 33 mmHg (35-45); PO2(98.6) 67 mmHg (60-100); SAMPLE BLOOD; THB 14.5 g/dL (11.5-17.4); pH(98.6) 7.45 (7.35-7.45)
[2019-12-08] MEDS ORDERED: ZOFRAN IV PRN (15:56)
[2019-12-08] MEDS ORDERED: LASIX IV ONE (15:58)
[2019-12-08 16:43] LABS: URINE SOURCE CLEAN CATCH
[2019-12-08 16:47] LABS: BILIRUBIN URINE NEGATIVE (NEGATIVE); BLOOD URINE NEGATIVE (NEGATIVE); COLOR YELLOW; GLUCOSE URINE NEGATIVE (NEGATIVE); KETONE URINE NEGATIVE (NEGATIVE); LEUKOCYTES URINE NEGATIVE (NEGATIVE); NITRITE URINE NEGATIVE (NEGATIVE); PH URINE 5.5; PROTEIN URINE TRACE mg/dL (NEGATIVE); SP GRAVITY URINE 1.016; TURBIDITY URINE CLEAR (CLEAR); UR EPITHELIAL CELLS <10 /HPF (<10); URINE BACTERIA NEGATIVE /HPF; URINE RBC <10 /HPF (<10); URINE WBC <10 /HPF (<10); UROBILINOGEN URINE NORMAL (NORMAL)
[2019-12-08] MEDS ORDERED: NEXIUM IV SCH (19:30)
[2019-12-08] MEDS: SODIUM CHLORIDE 0.9% INJ SCH (19:58)
[2019-12-08] MEDS: PROTONIX IV SCH (19:58)
[2019-12-08] MEDS: LOVENOX SUBQ SCH (19:58)
[2019-12-08] MEDS: ZITHROMAX 500 MG/NS 500 MG/250 ML IVPB IV SCH (19:58)
[2019-12-08] MEDS: TYLENOL PO PRN (20:16)
[2019-12-09] MEDS: HUMULIN R SUBQ SCH ×5 (00:03→21:00)
[2019-12-09 04:06] LABS: ALLEN TEST YES; BE -2.5 mmoll (-3.0-3.0); BLOOD TYPE ARTERIAL; HCO3-(ACT) 22.7 mmoll (20.0-26.0); METHB 0.7 % (0.0-1.5); O2(CT) 18.6 mL/dL (15.0-23.0); PCO2(98.6) 35 mmHg (35-45); PO2(98.6) 54 mmHg (60-100); SAMPLE BLOOD; SAO2 91.2 % (95.0-100.0); THB 14.8 g/dL (11.5-17.4)
[2019-12-09 04:10] LABS: O2HB 89.5 % (95.0-99.0)
[2019-12-09 04:11] LABS: MODALITY ROOM AIR
[2019-12-09 06:16] LABS: BASO# 0.02 X1000 (0.0-0.2); BASO% 0.2 % (0.0-0.8); EOS# 0.18 X1000 (0.0-0.7); EOS% 1.9 % (0.0-10.0); HEMATOCRIT 40.9 % (42.0-52.0); HEMOGLOBIN 13.2 g/dL (14.0-18.0); LYMPH# 0.77 X1000 (1.2-3.4); LYMPH% 8.1 % (20.5-51.1); MCH 29.1 PG (27-31); MCHC 32.3 g/dL (33-37); MCV 90.1 FL (81-99); MONO# 0.72 X1000 (0.11-0.59); MONO% 7.6 % (1.7-9.3); MPV 10.8 FL (7.4-10.4); NEUT# 7.77 X1000 (1.4-6.5); NEUT% 82.2 % (42.2-75.2); PLT 159 X1000 (130-400); RBC 4.54 XMIL (4.7-6.1); RDW 14.6 % (11.5-14.5); WBC 9.46 X1000 (4.8-10.8)
[2019-12-09 06:39] LABS: CALCIUM 8.7 mg/dL (8.8-10.2); CREATININE 1.6 mg/dL (0.7-1.2); POTASSIUM 4.1 mmol/L (3.5-5.1)
--- NOTE | 2019-12-09 06:40 | HISTORY AND PHYSICAL ---
CHIEF COMPLAINT: Shortness of breath, URI symptoms, abnormal lab values, and swelling of left leg that started since yesterday. HISTORY OF PRESENT ILLNESS: This is a 69-year-old white male who was not seen in my office since August of last year. Interval History: Apparently, patient has a TAVR by Dr. Garcia. Postoperatively, this was complicated by some foreign body occlusion in the left leg requiring removal of the foreign body by Dr. Lyon. Since then, he has some swelling of the left leg. I did see the patient in the emergency room along with the family. They said that the new troponin high sensitivity was positive. He has some cough and congestion, and sore throat. His exam is very suboptimal in the ER. He is morbidly obese and wears a CPAP machine. Basically, he is admitted to the hospital with URI symptoms. There was no flu test done. Chest x-ray showed cardiomegaly. No definitive masses or infiltrates. As a result, the hospital admission was warranted. PAST MEDICAL HISTORY: Morbid obesity, sleep apnea, coronary artery disease, depression, type 2 diabetes metabolic syndrome, acid reflux disease, hyperlipidemia, hypothyroidism, MAYERS, and umbilical hernia. PAST SURGICAL HISTORY: Bypass surgery, bilateral carotid arterectomy, status post TAVR, and status post removal of foreign body in the left leg after the TAVR. MEDICATIONS: 1. Flomax 0.4 mg 2 tablets daily. 2. Paxil 40 daily. 3. Potassium 20 mEq daily. 4. Protonix 40 daily. 5. Aspirin 81 mg daily. 6. Fenofibrate 160 daily. 7. Synthroid 50 mcg daily. 8. Lantus 85 units subcutaneous in the morning. 9. Amlodipine 5 mg daily. 10. Prozac 40 daily. ALLERGIES: Not known. SOCIAL HISTORY: . No smoking. No alcohol. No drug abuse. 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 FAMILY HISTORY: Father of aneurysm at 40. Mom of multiple myeloma. HEALTH MAINTENANCE: Last physical exam in August of [address] Gonzales. Pneumococcal vaccine 23 was given in 2013. Tdap 04/15/2017. REVIEW OF SYSTEMS: Sore throat, sniffles, and congestion in the chest. No earache.Neck: Bilateral carotid surgery. Cardiopulmonary: No chest pain or shortness of breath. No PND. No orthopnea. GI: No nausea, vomiting, or abdominal pain. : He is in diapers. Extremities: Some swelling of left leg. Neurologic: No focal symptoms or weakness. PHYSICAL EXAMINATION: VITAL SIGNS: Temperature 98.1 degrees, blood pressure 105/65, 94% on room air nasal cannula. GENERAL: Morbidly obese. Not in respiratory distress. HEENT: TMs are normal. Pupils equal, and reactive to light. NECK: Supple. No lymphadenopathy. No goiter. CHEST: Bilateral air entry. HEART: Distant heart sounds. No murmurs. ABDOMEN: Belly is soft, and nontender. Good bowel sounds. EXTREMITIES: Left leg is slightly swollen than the right. Decreased pulses. NEUROLOGIC: No obvious neurological deficits. INVESTIGATIONS: White cell count 12, hematocrit 45, and platelets 192,000. PT/INR is normal. ABG pH is 7.45, pCO2 32, PO2 67 on 28%. SMA 7 and creatinine 1.52. CK index is negative. Troponin T high sensitivity 52. ProBNP is normal. Urinalysis is clear. Chest x-ray with cardiomegaly. EKG sinus tachycardia, nothing acute. ASSESSMENT AND PLAN: 1. A 69-year-old white gentleman admitted to the hospital with shortness of breath, most likely URI symptoms. Continue on IV ceftriaxone.and Zithromax 2. Status post TAVR for aortic stenosis, stable. 3. Left leg swelling, status post thrombectomy and foreign body removal after the TAVR. We will check the SPARKLE. 4. DVT and GI prophylaxis with Lovenox and Protonix. 6. Positive troponin, most likely false-positive. We will follow up on the trend. Consulted by Dr. Ki Robbins. 7. Reconcile home medicines, type 2 diabetes on insulin with sliding scale. 8. Physical Therapy consult for ambulation. Initiate vaccination protocol prior to the discharge. 9. Discussed with the family at bedside. Waiting to be admitted. cc: Jose Armando London MD [facility]
[2019-12-09 07:03] LABS: HEMOGLOBIN A1C 7.2 % (4.8-6.0)
[2019-12-09 07:19] LABS: CK INDEX 1.4 (0.0-2.5); CK-MB 3.69 ng/mL (0.0-5.0)
[2019-12-09] MEDS ORDERED: PROZAC PO SCH ×2 (09:00)
[2019-12-09] MEDS: LANTUS INSULIN SUBQ SCH (09:00)
[2019-12-09] MEDS ORDERED: PAXIL PO SCH (09:00)
[2019-12-09] MEDS: FLOMAX PO SCH (10:20)
[2019-12-09] MEDS: NORVASC PO SCH (10:20)
[2019-12-09] MEDS: KLOR-CON PO SCH (10:20)
[2019-12-09] MEDS: ASPIRIN EC PO SCH (10:20)
[2019-12-09] MEDS: TYLENOL PO PRN ×2 (10:25→21:00)
[2019-12-09] MEDS: LOFIBRA PO SCH (10:52)
[2019-12-09] MEDS: SYNTHROID PO SCH (10:52)
[2019-12-09] MEDS: PAXIL PO SCH (10:52)
[2019-12-09 15:43] LABS: CK INDEX 1.3 (0.0-2.5); CK-MB 3.39 ng/mL (0.0-5.0)
[2019-12-09] MEDS: LOVENOX SUBQ SCH (20:59)
[2019-12-09] MEDS: PROTONIX IV SCH (21:00)
[2019-12-09] MEDS: ROCEPHIN 1 GM in NS 50 ML IV SCH (21:00)
[2019-12-09] MEDS: ZITHROMAX 500 MG/NS 500 MG/250 ML IVPB IV SCH (22:07)
[2019-12-09 23:00] LABS: CK INDEX 0.9 (0.0-2.5); CK-MB 2.74 ng/mL (0.0-5.0)
--- NOTE | 2019-12-09 23:50 | PROGRESS NOTE ---
DATE: 12/09/2019 SUBJECTIVE: The patient is running a fever, 100.4. Vitals are stable. He has terrible hearing problems. Family was at bedside. The patient was seen in the emergency room. ER nurses called me. He had blood cultures are positive for gram-positive cocci. Influenza was negative and morbidly obese with postnasal drainage. Chest: Bilateral air entry. Heart sounds are regular. The belly is soft nontender. The left leg is swollen. INVESTIGATIONS: White cell count 9.4, hematocrit 40, platelets 159,000. ABG: pH is 7.40, pCO2 35, PO2 54 on room air. SMA-7: Sodium 139, potassium 4.1, chloride 102, BUN 21, creatinine 1.6. Glucose 204, A1c 7.2. CK index is negative. ProBNP 343. Chest x-ray: Cardiomegaly. ASSESSMENT AND PLAN: 1. Shortness of breath due to upper respiratory infection (URI) with bronchitis. Currently on ceftriaxone and Zithromax. Chest x-ray stable. Elevated white cell count, fever 100.4. Flu was negative and blood cultures we will follow up on Blood culture. 2. Obstructive sleep apnea on CPAP, status post transcatheter aortic valve replacement (TAVR) complicated by foreign body thrombectomy in the left leg. Follow up on ankle-brachial indexes. 3. Reconcile home medicines. [facility]. 4. Positive troponin. EKG and follow up on CK-MB index was negative, looks like false positive and we will continue to monitor. 5. Deep venous thrombosis and gastrointestinal prophylaxis as per order sheet. LEVEL OF DOCUMENTATION: 25 minutes. cc: MD TAMIKA Clancy
--- NOTE | 2019-12-10 02:41 | VASCULAR LAB ---
PROCEDURE NAME: Arterial Bilateral Legs - 12/08/2019 REFERRING PHYSICIANS: Dr. London. IDENTIFICATION: A 69-year-old male. ORTHOPEDIC RN: WENDYW. INDICATIONS: Status post thrombectomy right common femoral artery. The patient has had a history of stroke, diabetic, high blood pressure. Does not smoke. FINDINGS: Systolic brachial blood pressure on the right is 124 mmHg. Right thigh 164 mmHg, left thigh is 218 mmHg. Right calf 149 mmHg., left calf 149 mmHg. Right ankle 152 mmHg, left ankle is 116 mmHg. There is pulsatile flow on both feet and both great toes at rest. The right ankle- brachial index is 1.23, left ankle-brachial index is 0.94. INTERPRETATION: Normal resting bilateral lower extremity arterial study. cc: MD Jose Armando Gomez MD
[2019-12-10] MEDS: HUMULIN R SUBQ SCH ×4 (06:19→21:45)
[2019-12-10] MEDS: ASPIRIN EC PO SCH (09:08)
[2019-12-10] MEDS: NORVASC PO SCH (09:08)
[2019-12-10] MEDS: SYNTHROID PO SCH (09:08)
[2019-12-10] MEDS: KLOR-CON PO SCH (09:08)
[2019-12-10] MEDS: LOFIBRA PO SCH (09:08)
[2019-12-10] MEDS: FLOMAX PO SCH (09:08)
[2019-12-10] MEDS: PAXIL PO SCH (09:09)
[2019-12-10] MEDS: LANTUS INSULIN SUBQ SCH (09:12)
--- NOTE | 2019-12-10 19:41 | PROGRESS NOTE ---
DATE: 12/10/2019 SUBJECTIVE: The patient still complains of cough and congestion. He feels much better. REVIEW OF SYSTEMS: None reported. PHYSICAL EXAMINATION: Vital Signs: Temperature is 98 degrees, pulse is 86, blood pressure 115/63, 2 L nasal cannula. HEENT: Postnasal drainage. Neck: Supple. Chest: Bilateral air entry. Heart: Irregular sounds. Abdomen: Belly is soft, obese, nontender. Extremities: Left leg is slightly swollen on the right side. INVESTIGATIONS: None reported. Influenza test was negative. ASSESSMENT AND PLAN: 1. Shortness of breath due to URI symptoms with bronchitis. Continue IV ceftriaxone and Zithromax. 2. Rule out influenza infection. 3. Sleep apnea and morbid obesity, on CPAP machine. 4. Status post transcatheter aortic valve replacement (TAVR), stable. 5. Left leg swelling. Thrombectomy done. Follow up on SPARKLE, left side is 0.94, right side is 1.2. Explained to the patient it is not uncommon after removal of thrombectomy to see some soft tissue swelling. Continue on stockings. 6. Deep venous thrombosis and GI ]prophylaxis, as per order sheet. 7. Blood cultures reported 1:2 positive, most likely contamination. Continue to monitor over the weekend. We will discharge on Friday. 8. Hypothyroidism, on Synthroid. 9. Diabetes, on Lantus. Will follow up. LEVEL OF DOCUMENTATION: 25 minutes. cc: Jose Armando London MD MTDD
[2019-12-10] MEDS: SODIUM CHLORIDE 0.9% INJ SCH (20:27)
[2019-12-10] MEDS: ROCEPHIN 1 GM in NS 50 ML IV SCH (20:27)
[2019-12-10] MEDS: LOVENOX SUBQ SCH (20:27)
[2019-12-10] MEDS: PROTONIX IV SCH (20:27)
[2019-12-10] MEDS: ZITHROMAX 500 MG/NS 500 MG/250 ML IVPB IV SCH (20:27)
[2019-12-11] MEDS: HUMULIN R SUBQ SCH ×4 (06:21→22:00)
[2019-12-11] MEDS: SYNTHROID PO SCH (08:35)
[2019-12-11] MEDS: NORVASC PO SCH (08:35)
[2019-12-11] MEDS: LOFIBRA PO SCH (08:35)
[2019-12-11] MEDS: KLOR-CON PO SCH (08:35)
[2019-12-11] MEDS: FLOMAX PO SCH (08:35)
[2019-12-11] MEDS: ASPIRIN EC PO SCH (08:35)
[2019-12-11] MEDS: PAXIL PO SCH (08:35)
[2019-12-11] MEDS: LANTUS INSULIN SUBQ SCH (08:39)
[2019-12-11] MEDS ORDERED: MBX SOLUTION MT PRN (08:52)
[2019-12-11] MEDS: DUONEB (A & A) INH SCH ×3 (09:46→21:15)
--- NOTE | 2019-12-11 12:45 | PROGRESS NOTE ---
DATE: 12/11/2019 Patient is a 69-year-old, white gentleman, admitted with chest congestion, cough, some wheezing, and shortness of breath. His symptoms more suggestive of upper respiratory tract infection. The patient was started on Rocephin and Zithromax. The patient is doing some better. The patient is still complaining of sore throat, wheezing, and pain in the right year this morning. The patient does have problem with significant cerumen in the ear. He denied any typical chest pain or palpitations. Concerned about leg swelling. The patient had TAVR done for aortic stenosis. Does have cough with scanty sputum production. No abdominal pain, nausea, vomiting. No diarrhea, blood, or mucus in the stool. History part is limited. Admission history and physical noted. PAST MEDICAL HISTORY: Significant for coronary artery disease, sleep apnea, gastritis and reflux disease, morbid obesity, IDDM, metabolic syndrome, hypothyroidism, MAYERS, umbilical hernia. PAST SURGICAL HISTORY: The patient had a CABG done, bilateral carotid endarterectomy, status post TAVR for aortic stenosis, foreign body removal from left leg after aortic stenosis surgery. MEDICATIONS: Current medication noted. PHYSICAL EXAMINATION: Blood pressure 174/78, pulse 83, respirations 20, temperature 99.1 degrees.Skin: Senile turgor. Neck: Supple. No JVD, thyromegaly or lymphadenopathy. Chest: Bibasilar crepitation, occasional wheezing. Cardiovascular: S1 and S2 heard, 2/6 systolic murmur at the apex. Abdomen: Soft, globular. Bowel sounds present. Patient does have pharyngeal congestion. Extremities: No cyanosis, clubbing. Minimal swelling in the left foot. FLORAL MANAGER: Alert, awake, able to move all 4 limbs. LABORATORY: Lab data done on admission reviewed. His hemoglobin A1c was 7.2. CONSIDERATION: Upper respiratory tract infection and acute bronchitis. We will continue Rocephin and Zithromax. I am going to add Magic mouthwash for symptomatic relief. OTHER PROBLEMS: 1. Sleep apnea and morbid obesity. On CPAP. 2. Hypothyroidism, on Synthroid. 3. Diabetes mellitus. The patient is on Lantus. 4. Cerumen impaction. Patient will need followup with ENT. PLAN: Admission history physical noted. I am going to repeat blood work in the morning. Continue rest of the treatment and close observation. cc: MD Jose Armando Velasquez MD
[2019-12-11] MEDS: SODIUM CHLORIDE 0.9% INJ SCH (21:58)
[2019-12-11] MEDS: PROTONIX IV SCH (21:58)
[2019-12-11] MEDS: ROCEPHIN 1 GM in NS 50 ML IV SCH (21:59)
[2019-12-11] MEDS: ZITHROMAX 500 MG/NS 500 MG/250 ML IVPB IV SCH (21:59)
[2019-12-11] MEDS: LOVENOX SUBQ SCH (22:01)
[2019-12-12] MEDS: DUONEB (A & A) INH SCH ×4 (03:40→22:30)
[2019-12-12 06:31] LABS: BASO# 0.02 X1000 (0.0-0.2); BASO% 0.4 % (0.0-0.8); EOS# 0.24 X1000 (0.0-0.7); EOS% 5.3 % (0.0-10.0); HEMATOCRIT 40.2 % (42.0-52.0); HEMOGLOBIN 12.9 g/dL (14.0-18.0); IMM GRAN# 0.02 X1000 (0.0-0.04); IMM GRAN% 0.4 % (0.0-0.5); LYMPH# 1.06 X1000 (1.2-3.4); LYMPH% 23.3 % (20.5-51.1); MCH 28.9 PG (27-31); MCHC 32.1 g/dL (33-37); MCV 89.9 FL (81-99); MONO# 0.32 X1000 (0.11-0.59); MPV 10.6 FL (7.4-10.4); NEUT# 2.89 X1000 (1.4-6.5); NEUT% 63.6 % (42.2-75.2); PLT 160 X1000 (130-400); RBC 4.47 XMIL (4.7-6.1); RDW 14.3 % (11.5-14.5); WBC 4.55 X1000 (4.8-10.8)
[2019-12-12] MEDS: HUMULIN R SUBQ SCH ×4 (06:48→21:40)
[2019-12-12 07:12] LABS: AGAP 13; ALB/GLOB RATIO 1.2; ALBUMIN 3.6 g/dL (3.5-5.0); ALKALINE PHOSPHATASE 40 U/L (32-122); BUN 17 mg/dL (8-22); CALCIUM 8.7 mg/dL (8.8-10.2); CHLORIDE 103 mmol/L (98-107); COSMO 285; CREATININE 1.3 mg/dL (0.7-1.2); ESTIMATED GFR 54; GLUCOSE 165 mg/dL (70-104); GOT 23 U/L (10-34); GPT 26 U/L (10-44); MAGNESIUM 2.2 mg/dL (1.5-2.7); POTASSIUM 4.2 mmol/L (3.5-5.1); SODIUM 140 mmol/L (136-145); TCO2 24 mmol/L (25-35); TOTAL BILIRUBIN < 0.15 mg/dL (0.20-1.00); TOTAL PROTEIN 6.5 g/dL (6.3-8.3)
[2019-12-12] MEDS: NORVASC PO SCH (09:12)
[2019-12-12] MEDS: PAXIL PO SCH (09:12)
[2019-12-12] MEDS: ASPIRIN EC PO SCH (09:12)
[2019-12-12] MEDS: FLOMAX PO SCH (09:12)
[2019-12-12] MEDS: SYNTHROID PO SCH (09:12)
[2019-12-12] MEDS: KLOR-CON PO SCH (09:12)
[2019-12-12] MEDS: LOFIBRA PO SCH (09:12)
[2019-12-12] MEDS: LANTUS INSULIN SUBQ SCH (09:13)
--- NOTE | 2019-12-12 10:57 | PROGRESS NOTE ---
DATE: 12/12/2019 SUBJECTIVE: Mr. Novoa is feeling fair. Patient does have pain in both the ears, some drainage and fullness. No bleeding. Sore throat feeling and wheezing is doing better. Does have cough with scanty sputum production. No chest pain or palpitations. No dysuria or hematuria. Patient is morbidly obese. OBJECTIVE: Vital Signs: Noted, which are stable. Neck: Supple. No JVD, thyromegaly or lymphadenopathy. HEENT: Ear examination did reveal some drainage in both the ears. I cannot visualize the tympanic membrane. Lungs: Bibasilar crepitations, occasional wheezing. Cardiovascular: S1 and S2 heard. Abdomen: Soft, globular. Bowel sounds present. GLASS PRODUCTS INSPECTOR: Alert, awake. Able to move all 4 limbs. Leg swelling is improving. CONSIDERATION: 1. Otitis. I am going to try Floxin ear drops. 2. Upper respiratory tract infection and bronchitis. We will continue current treatment. 3. Morbid obesity. Encouraged patient to lose weight. 4. Sleep apnea. 5. Hypothyroidism on Synthroid. 6. Diabetes mellitus on Lantus. The patient had blood work done this morning. Hemoglobin 12.9, hematocrit 40.2, WBC count 4.55, platelet count 160,000. Electrolytes were fairly benign. PLAN: Overall plan discussed with the patient. If ears symptoms do not improved, the patient will discuss with PMD to get appointment with ENT. cc: MD Jose Armando Velasquez MD
[2019-12-12] MEDS: FLOXIN OTIC BOTH EARS SCH (13:43)
[2019-12-12] MEDS: SODIUM CHLORIDE 0.9% INJ SCH (21:40)
[2019-12-12] MEDS: ROCEPHIN 1 GM in NS 50 ML IV SCH (21:40)
[2019-12-12] MEDS: PROTONIX IV SCH (21:40)
[2019-12-12] MEDS: LOVENOX SUBQ SCH (21:41)
[2019-12-12] MEDS: ZITHROMAX 500 MG/NS 500 MG/250 ML IVPB IV SCH (22:48)
[2019-12-13] MEDS: DUONEB (A & A) INH SCH ×2 (03:59→10:06)
[2019-12-13] MEDS: HUMULIN R SUBQ SCH ×2 (06:15→10:52)
[2019-12-13 07:58] VITALS: BP 149/75
[2019-12-13] MEDS ORDERED: FLU VACCINE IM ONE (08:10)
[2019-12-13] MEDS ORDERED: PREVNAR 13 IM ONE (08:10)
[2019-12-13] MEDS: SYNTHROID PO SCH (09:01)
[2019-12-13] MEDS: LOFIBRA PO SCH (09:01)
[2019-12-13] MEDS: FLOMAX PO SCH (09:02)
[2019-12-13] MEDS: KLOR-CON PO SCH (09:02)
[2019-12-13] MEDS: PAXIL PO SCH (09:06)
[2019-12-13] MEDS: ASPIRIN EC PO SCH (09:06)
[2019-12-13] MEDS: FLOXIN OTIC BOTH EARS SCH (09:08)
[2019-12-13] MEDS: LANTUS INSULIN SUBQ SCH (09:08)
[2019-12-13] MEDS: NORVASC PO SCH (09:08)
--- NOTE | 2019-12-17 23:41 | DISCHARGE SUMMARY ---
ADMISSION DATE: 12/08/2019 DISCHARGE DATE: 12/13/2019 DISCHARGING DIAGNOSIS: 1. Acute shortness of breath due to underlying Pickwickian syndrome. Bronchopneumonia. SECONDARY DIAGNOSES: 1. Morbid obesity. 2. Sleep apnea. 3. Severe deafness. 4. Coronary artery disease. 5. Type 2 diabetes. 6. Metabolic syndrome. 7. Acid reflux disease. 8. Hyperlipidemia. 9. Hypothyroidism. 10. Umbilical hernia. 11. Non-alcoholic steatohepatitis. 12. Status post transcatheter aortic valve replacement (TAVR) for aortic stenosis status post removal of foreign body in the left leg after TAVR by Dr. Lyon. 13. Chronic left leg swelling due to thrombectomy, removal of foreign body. BRIEF HISTORY: Please see the history and physical that was done on 12/08/2019. This is a 69- year-old white male who recently had a TAVR complicated by foreign body occlusion to the left leg in [facility], basically came in with shortness of breath, cough, congestion, swelling of left leg. He had a swelling of left leg after a thrombectomy by Dr. Lyon. I did not see him since he left from August 2019 hospitalization. HOSPITAL COURSE: 1. He had a chest x-ray, cardiomegaly. Clinically, he had significant bronchopneumonia, elevated white cell count 12,000. The patient was started on IV ceftriaxone and Zithromax. Blood cultures 1/2 positive, which is contamination. He is significantly improved after treating with antibiotics. 2. Left leg swelling due to opening of the arteries and arterial flow studies which are pretty much normal. 3. Positive troponin, which is false-positive. He had extensive workup done before and the patient was discharged home in a stable condition. LABORATORIES: CBC: White cell count 4.5, hematocrit 40, platelets 160,000. D- dimer 0.45, PT/INR is normal. ABG: PH 7.40, pCO2 35, PO2 54 on room air. Continue home oxygen, 2 L. Sodium 140, potassium 4.2, chloride 103, BUN 17, creatinine 1.3, glucose 165. LFTs were normal. Urinalysis is clear. Influenza screen was negative. Blood cultures 1/2 positive coag- negative staph. IMAGING STUDIES: Extremity arterial flow study, SPARKLE, Left side 0.94, Righ side is 1.24. DISCHARGE INSTRUCTIONS: 1. Flu vaccine 12/13/2019. Pneumococcal 12/13/2019, Tdap 04/05/2017. 2. Home oxygen 2 L CPAP machine. 3. Flomax 0.4 mg p.o. b.i.d., Paxil 40 daily, potassium 20 mEq daily, Protonix 40 daily, aspirin 81 mg daily, Fenofibrate 160 daily, Synthroid 50 mcg daily, Lantus 85 units subcutaneous in the morning, amlodipine 5 mg daily, Prozac 40 daily, Levaquin 500 daily for 7 days and Humalog insulin subcutaneously as directed. 4. Follow up in my office in 10 days. cc: MD Dr. Rosendo Clancy
== END 2019-12-13 11:32 | disposition home health service (06) | DRG 194 ==
LOC: ED 12:45 → EDIPHOLD 16:07 → 2N 12-09 12:49
PROVIDERS: ADMIT Internal Medicine; ATTEND Internal Medicine